=== PATIENT | male | born 1930 | race Caucasian/White ===

== ENCOUNTER → 2016-05-05 | Outpatient (CLI) | payer OTHER ==
[~2016-05-05] MED LIST: ASPI325T4 PO; BRIM0.15 OP; CETI10TA10 PO; LATA0.009 OPB; METO-551 PO; SYMIN160 INH; ZCRT/40 PO
== END | disposition home or self-care (01) ==
LOC: C.LABMFLN 17:07
PROVIDERS: ATTEND Family Medicine
DX: L02.31 Cutaneous abscess of buttock (principal)

== ENCOUNTER → 2016-07-27 | Outpatient (CLI) | payer OTHER | END | disposition home or self-care (01) | LOC: C.LABMFLN 14:03 | PROVIDERS: ATTEND Family Medicine | DX: L02.91 Cutaneous abscess, unspecified (principal) ==